=== PATIENT | male | born 1990 | race Caucasian/White ===

== ENCOUNTER 2018-03-09 10:35 | Emergency (ER) | payer OTHER ==
[~2018-03-09] VITALS: Ht 175.3 cm; Wt 100.0 kg
[2018-03-09 10:37] VITALS: BP 139/80; PULSE 110; RESP 18; Ht 175.3 cm; Wt 100.0 kg
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
== END 2018-03-09 11:00 ==
LOC: E/R 10:35
DX: Z04.1 Encounter for examination and observation following transport accident (principal)
CPT/HCPCS: 99282